=== PATIENT | male | born 1950 | race Caucasian/White ===

== ENCOUNTER 2018-05-19 16:03 | Emergency (ER) | payer OTHER, BC ==
[~2018-05-19] VITALS: Ht 162.6 cm; Wt 85.0 kg
[2018-05-19] MEDS ORDERED: OXYCODONE HCL10 MG PO (19:06)
[2018-05-19 19:37] VITALS: BP 131/97
== END 2018-05-19 19:37 | disposition home or self-care (01) ==
LOC: EME 16:03
DX: T81.30XA Disruption of wound, unspecified, initial encounter (principal); M79.661 Pain in right lower leg; M79.89 Other specified soft tissue disorders; L53.9 Erythematous condition, unspecified; Z98.890 Other specified postprocedural states; I10 Essential (primary) hypertension; E78.5 Hyperlipidemia, unspecified; E11.9 Type 2 diabetes mellitus without complications; F17.200 Nicotine dependence, unspecified, uncomplicated
CPT/HCPCS: 87077; 87205; 93971; 99281; 99283